=== PATIENT | male | born 1995 | race Caucasian/White ===

== ENCOUNTER → 2020-01-07 12:36 | Outpatient (CLI) | payer MEDICARE, OTHER, MEDICAID, SELFPAY ==
--- NOTE | ~2020-01-07 | CT_ITS ---
EXAMINATION: CT BRAIN W/O DATE: 01/07/2020 13:53 INDICATION: Headache. Papilledema. TECHNIQUE: Computed tomography (CT) of the head was performed without intravenous contrast. The dose- length product was 599.57 mGy-cm. The mA was adjusted according to patient size. Iterative reconstruc tion technique was employed. COMPARISON: No prior studies for comparison. FINDINGS: Normal brain parenchymal volume for age. Normal mejia-white differentiation. No acute intrac ranial hemorrhage, infarction, mass or mass effect. No ventriculomegaly or midline shift. Midline sagittal images demonstrate a normal corpus callosum, c raniovertebral junction and sella turcica. Basilar cisterns are patent. Paranasal sinuses and mastoids are pneumatized. No depressed skull fractures. IMPRESSION: 1. No acute intracranial abnormality. Reviewed, dictated and finalized at location A.
[2020-01-07 13:38] LABS: Estimated Glomerular Filt Rate 34
== END ==
PROVIDERS: PCP Pediatrics; Visit Provider Pediatrics
DX: R51 Headache (principal)
CPT/HCPCS: 36415; 70450

== ENCOUNTER 2021-04-01 11:03 | Outpatient (CLI) | payer MEDICARE, OTHER, MEDICAID, SELFPAY ==
--- NOTE | ~2021-04-01 | XR_ITS ---
EXAMINATION: XR hand RT 2V DATE: 04/01/2021 11:34 INDICATION: Inflammatory arthritis with gout in the second digit. TECHNIQUE: Posteroanterior, oblique and lateral views of the right hand were obtained. COMPARISON: None. FINDINGS: 3 mm ulnar minus variance. Alignment is otherwise normal. No fractures. Joint spaces are normal. No c ortical erosions. Soft tissue swelling at the ulnar side of the second distal interphalangeal joint a nd to a lesser degree about the second and third proximal interphalangeal joints. IMPRESSION: 1. Nonspecific periarticular soft tissue swelling at the ulnar side of the right second distal interp halangeal joint and to lesser degree at the second and third proximal interphalangeal joints. 2. Normal joint spaces and no osseous erosions to more specifically suggest an inflammatory arthritis .. Reviewed, dictated and finalized at location A. IMPRESSION: 1. Nonspecific periarticular soft tissue swelling at the ulnar side of the righ t second distal interphalangeal joint and to lesser degree at the second and th ird proximal interphalangeal joints. 2. Normal joint spaces and no osseous erosions to more specifically suggest an inflammatory arthritis..
== END 2021-04-01 11:04 | disposition home or self-care (01) ==
LOC: ANHIMG 11:15
PROVIDERS: PCP Pediatrics
DX: M19.90 Unspecified osteoarthritis, unspecified site (principal)
CPT/HCPCS: 73120

== ENCOUNTER 2025-07-29 07:00 | Outpatient (CLI) | payer MEDICARE, MEDICAID, SELFPAY ==
--- NOTE | ~2025-07-29 | XR_ITS ---
EXAMINATION: XR knee RT 3V, 07/29/2025 7:30 CDT HISTORY: M25.561 - Pain in right knee COMPARISON: No comparisons available. Findings: No acute fracture or malalignment. No significant degenerative changes. Soft tissues unremarkable. Impression: No acute fracture or malalignment. Reviewed, dictated and finalized at location P. Impression: No acute fracture or malalignment.
--- NOTE | ~2025-07-29 | XR_ITS ---
EXAMINATION: XR hip BI 2V w AP pelvis, 07/29/2025 7:30 CDT HISTORY: M25.551 - Pain in right hip NON INJ COMPARISON: No comparisons available. Findings: No acute fracture or malalignment. 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 Soft tissues unremarkable. Impression: No acute fracture or malalignment. Reviewed, dictated and finalized at location P. Impression: No acute fracture or malalignment.
--- OUTSIDE RECORDS SUMMARY | 2025-07-29 07:05 | XMS_ITS | Clinical Summary ---
Author Organization [facility] Address [address] [place] [address] Care Team Providers Care Produce Runner Name Role Phone Michael Ortez MD Primary Care Provider [phone] Allergies No known active allergies Medications allopurinoL (ZYLOPRIM) 300 mg tablet Take 1 tablet (300 mg total) by mouth daily 90 tablet 1 02/11/20 25 Active levothyroxine (SYNTHROID) 100 mcg tabletIndications: Acquired hypothyroidism TAKE 1 TABLET BY MOUTH EVERY MORNING. 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 Given history of severe reflux and back pain, he likely has pyelonephritis as well as cystis. He is a patient of urology who recommends outpatient treatment with bactrim; however, due to emesis he was admitted for concern for ongoing fluid resuscitation requirements. Empiric treatment would typically be with ciprofloxacin, however given the patient's history of tendonitis after fluoroquinolone treatment, we will await sensitivities to pick a narrow-spectrum agent with decreased risk of side effects. -cefepime 2000 q24h -narrow after sensitivities are available -zofran prn Assessment & Plan (03/23/2019 2:27 AM CDT): Juan is a 23 year old male with trisomy 21, chronic renal insufficiency, reflux nephropathy s/p Mitrofanoff placement, as well as HTN and hypothyroidism, who presents with emesis and dehydration secondary to complicated UTI. Given history of severe reflux and back pain, he likely has pyelonephritis as well as cystis. He is a patient of urology who recommends outpatient treatment with bactrim; however, due to emesis he was admitted for concern for ongoing fluid resuscitation requirements. He currently has a heart rate of 100, decreased from 134, and is currently comfortable without vomiting. We will re-dose his bactrim since he had vomiting soon after administration and continue supportive care overnight with the plan for discharge on oral bactrim tomorrow. -mIVF -bactrim 160 mg trimethoprim x 10 days -zofran prn Screening for diabetes mellitus 12/10/2018 Obesity (BMI 30-39.9) 12/09/2018 Obesity 11/26/2017 Urinary retention 09/26/2016 Hypertension 04/30/2015 Chronic renal insufficiency, stage III (moderate ) 09/12/2011 Reflux nephropathy 03/01/2010 Hypothyroidism 07/06/2009 Assessment & Plan (12/03/2024 2:23 PM MANUFACTURING PRODUCTION TECHNICIAN): 28 y.o. male with hypothyroidism associated with Down syndrome (trisomy 21): Here with his parents as always. He is doing well and feeling good. Family unfortunately suffered Influenza A infection and Juan also had a recent UTI but responded well to antibiotics - follows with Intervention Teacher. Dry, red hands (?dermatitis). Has been using an [employer] Ring for tclue-uzk-dhwoo insights into sleep, fitness, and stress. Clinically euthyroid and stable on current dose of Levothyroxine 100 mcg qAM - adherent with no missed doses Denies active symptoms: no cold intolerance, no fatigue, no constipation, no mood changes, no weight gain No thyroid enlargement, masses, nodules, or tenderness No bradycardia, no non-pitting edema, no delayed relaxation of tendon reflexes No evidence of hyponatremia on recent basic metabolic panel Latest thyroid function testing: Lab Results Component Value Date TSH 3.12 11/29/2024 T3FREE 3.0 11/29/2024 FREET4 1.2 11/29/2024 No results found for: THYROIDAB, THYROGLOBAB, THYPEROXAB, TBII Patient denies taking any high-potency biotin-containing supplements (altered testing) Patient denies taking any calcium or iron supplements (reduced absorption) Will get repeat labs at [facility] - orders sent Plan: 1) Continue Levothyroxine 100 mcg qAM (60 min before first meal); avoid other medications inhibiting absorption 2) Repeat thyroid function studies (TSH and Free T4) in 6-8 weeks if dose adjusted or annually, if stable 3) Check lipid panel (hypothyroidism assoc with hyperlipidemia) Trisomy 21, Down syndrome 07/06/2009 Assessment & Plan (12/26/2023 2:36 PM CDT): 28 y.o. male with hypothyroidism associated with Down syndrome (trisomy 21): Clinically euthyroid and stable on current dose of Levothyroxine 100 mcg qAM - adherent with no missed doses Denies active symptoms: no cold intolerance, no fatigue, no constipation, no mood changes, no weight gain No thyroid enlargement, masses, nodules, or tenderness No bradycardia, no non-pitting edema, no delayed relaxation of tendon reflexes No evidence of hyponatremia on recent basic metabolic panel Thyroid Function Tests (05/15/2023) on LT4 100 mcg daily: TSH = 2.10 Free T4 = 1.2 Free T3 = N/A Antibodies: anti-TPO Abs and TSI = N/A Latest Thyroid US = N/A Patient denies taking any high-potency biotin-containing supplements (altered testing) Patient denies taking any calcium or iron supplements (reduced absorption) Will get repeat labs at [facility] - orders sent Plan: 1) Continue Levothyroxine 100 mcg qAM (60 min before first meal); avoid other medications inhibiting absorption 2) Repeat thyroid function studies (TSH and Free T4) in 6-8 weeks if dose adjusted or annually, if stable 3) Check lipid panel (hypothyroidism assoc with hyperlipidemia) Resolved Problems Problem Noted Date Diagnosed Date Resolved Date Atrial septal defect 03/15/2018 018 Encounters Date Type Department Care Team Description 07/27/2025 Orders Only [facility] 2[address] [place] [address] [place] [id number] Dewayne Collier MD Recurrent UTI (Primary Dx) 07/24/2025 Orders Only [facility] [address] [facility] 5[address] [place] [address] [place] [address] Clay Pearl MD CRD (chronic renal disease), stage IV (HCC) (Primary Dx); 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; Hypertension secondary to other renal disorders; Reflux nephropathy; Malignant hypertension with chronic renal disease stage III (HCC) 05/20/2025 Telephone [facility] [address] [place] [address] [place] [address] Sanam Gonzalez RN Urostomy Samples from Last 3 Months Immunizations Immunization Administration Dates Next Due DTaP 02/04/2002, 9,06/30/1998,05/03/1998 ,02/25/1998 Hep B, Adolescent or Pediatric 09/20/1998,1997,1997 Hib (PRP-OMP) 07/05/1999,06/30/1998,05/03/1998 ,02/25/1998 IPV 02/03/2003,07/05/1999,05/03/1998 ,02/25/1998 MMR 02/03/2003,01/04/1999 MMRV 03/29/2010,04/19/1999 Meningococcal Conjugate (Menveo) 03/30/2016 Tdap 03/29/2010 Varicella 03/29/2010,04/19/1999 Surgical History Surgery Date Site/Laterality Comments URETEROURETEROSTOMY 1997 with takedown on 07/09/98 URETERAL REIMPLANTION 07/16/1998 TONSILLECTOMY AND ADENOIDECTOMY 10/03/2006 Bilateral VESICOSTOMY 03/15/2002 - 04/13/2002 with takedown 03/24/05 CYSTOSCOPY 11/21/2016 LMA 4, easy mask vent, OTHER SURGICAL HISTORY 01/16/2013 N/A VCUG MITROFANOFF PROCEDURE 03/15/2018 - 04/13/2018 APPENDECTOMY 03/15/2018 - 04/13/2018 Medical History Medical History Date Comments Hypertension 04/30/2015 controlled on Li sinopril; checked weekly at home and range is 120-130/70-80 Obesity Chronic renal insufficiency, stage III (moderate) 09/12/2011 Estimated GFR is 32mL/min/1. 73m2, Cre 2.04, BUN 57, elevated urine protein ratio, follows with nephrology every 6 months, should have 2L fluid minimum/day Urinary retention straight caths 6xday using 12-14 andorran Reflux nephropathy Hypothyroidism on Levothyroxine ; followed yearly by endocrinology Last labs 11/07/18 TSH 0.94 NL, FT4 1.3 NL Anomaly of chromosome pair 21 Family History Medical History Relation Name Comments Hip Problems Father Hip problem - ( Added by TW Conv) Cancer Other 1 Cancer - (Added by TW Conv) Diabetes Other 2 Diabetes Mellit - (Added by TW Conv) Hearing loss Other 3 Hearing Loss - (Added by TW Conv) Hypertension Other 4 Family history of hypertension - (Added by TW Conv) Relation Name Status Comments Father Other 1 Other 2 Other 3 Other 4 Social History Tobacco Use Types Packs/Day Years Used Date Smoking Tobacco: Never Smokeless Tobacco: Never Tobacco Cessation:Counseling Given: Not Answered Alcohol Use Standard Drinks/Week Comments No 0 (1 standard drink = 0.6 oz pur e alcohol) Sex and Gender Information Value Date Recorded Sex Assigned at Not on file Legal Sex Male 5:36 AM MANUFACTURING PRODUCTION TECHNICIAN Gender Identity Male 06/01/2021 3:27 PM CDT Sexual Orientation Not on file Obstetrics History Last Filed Vital Signs Vital Sign Reading Time Taken Comments Blood Pressure 126/80 04/08/2025 12:54 PM CDT Pulse 97 04/08/2025 12:54 PM CDT Temperature 36.4 C (97.6 F) 04/08/2025 12:54 PM CDT Respiratory Rate 18 08/07/2024 9:18 AM CDT Oxygen Saturation 99% 08/07/2024 9:18 AM CDT Inhaled Oxygen Concentration - - Weight 73.9 kg (163 lb) 04/08/2025 12:54 PM CDT Height 154.9 cm (5' 1) 04/08/2025 12:54 PM CDT Body Mass Index 30.8 04/08/2025 12:54 PM CDT Plan of Treatment Health Maintenance Due Date Last Done Comments Depression Screening 1997 Hepatitis C Screening 1997 Regular Well Visit/Exam 18-64 12/16/2015 DTaP/Tdap/Td Vaccine (7 - Td or Tdap) 03/29/2020 03/29/2010, 02/04/2002, 07/05/1999, Additional history exists HPV Vaccines (1 - 3-dose SCDM series) 2024 Influenza Vaccine (#1) 2025 Hepatitis B Screening Completed 09/20/1998 , 01/18/1998, 1997 Varicella Vaccines Completed 03/29/2010, 0 03/29/2010, 04/19/1999, Additional history exists Pneumococcal vaccine <65 Aged Out No longer eligible based on patient's age to complete this topic Medical Devices Implanted Type Area Optical Advisor Device Identifier Shelf Expiration Date Model / Serial / Lot Impl Uro 1ml Deflux Gel Inj - [id number] Implanted:Qty: 1 on 04/03/2018 by Rafat Bejarano MD at [facility] N/A: Bladder [employer] 02/12/2020 / / [id number] Impl Uro 1ml Deflux Gel Inj - [id number] Implanted:Qty: 3 on 11/13/2018 by Rafat Bejarano MD at [facility] N/A: Bladder [employer] 07/14/2020 / / [id number] Procedures Procedure Name Priority Date/Time Associated Diagnosis Comments COPY RECEIVED FROM Routine 06/24/2025 9: 08 AM CDT COPY(IES) SENT TO: Routine 06/24/2025 9: 08 AM CDT OSMOLALITY, URINE Routine 06/24/2025 9:0 8 AM CDT CRD (chronic renal disease), stage IV (HCC) from Last 3 Months Results * Copy received from (06/24/2025 9:08 AM CDT) Copy Rec'd from: [facility] Comment: [facility]-RENAL [address] [place] [address] 06/24/2025 9:08 AM CDT 06/24/2025 9:09 AM CDT Clay Pearl MD LAB BLOOD ORDERABLES Zina l Result Performing Organization Address City/[facility] Co de Phone Number [facility] * COPY(IES) SENT TO: (06/24/2025 9:08 AM CDT) COPY(IES) SENT TO: [facility] Comment: [facility]NAL [facility] RENAL [address] [address] 06/24/2025 9:08 AM CDT 06/24/2025 9:09 AM CDT Clay Pearl MD LAB BLOOD ORDERABLES Zina l Result Performing Organization Address City/[facility]/ZIP Co de Phone Number [facility] * Osmolality, urine (06/24/2025 9:08 AM CDT) Osmolality (u) 272 50 - 1,200 mOsm/kg [facility] Urine 06/24/2025 9:08 AM CDT 06/24/2025 9:09 AM CDT Clay Pearl MD LAB URINE ORDERABLES Zina l Result [facility] [address] [place] [address] from Last 3 Months Additional Health Concerns Infection Onset Date Last Indicated MDR gram neg/ESBL Comment:AUTOMATED NOTE (ADD): MDRO (contact), PERRY, [email or web address], Mon February 12 11:26:50 CDT 2016The patient has a urine culture from 02/09/17 that grew MDRO E.coli. 02/12/2017 02/12/2017 Insurance AETNA [facility] HMO [facility] MEDICARE [facility] Address: [address] [address] [place] [address] A[place] PREFERRED IDPA [facility] IDPA [facility] ADVANTRA IDPA [facility] AETNEA [facility] ADVANTRA Advance Directives For more information, please contact: [phone] Documents on File Type Date Recorded Patient Grocery Shopper Expl anation ADVANCE DIRECTIVE 04/03/2018 7:09 AM ADVANCE DIRECTIVE 01/28/2018 Advance Di rective Checklist ADVANCE DIRECTIVE 09/03/2017 Advance Di rective Checklist ADVANCE DIRECTIVE 01/28/2018 3:16 PM * Full Code (Latest Code Status on File) Date Activated Date Inactivated Comments 03/23/2019 1:11 AM 03/25/2019 2:56 PM * Full Code Date Activated Date Inactivated Comments 04/03/2018 8:01 PM 04/08/2018 2:20 PM Care Teams Produce Runner Relationship Specialty Start Date End Date Michael Ortez MD [address] [address] PCP - General Internal Medicine 04/11/22
--- OUTSIDE RECORDS SUMMARY | 2025-07-29 07:05 | XMS_ITS | Encounter Summary ---
Author Organization [facility] Healthcare Address [address] [place] [address] Care Team Providers Care Tobacco Conditioner Name Role Phone Toño Bella MD Primary Care Provider [phone] Michael Ortez MD Primary Care Provider [phone] Encounter Details Date Type Department Care Team (Late st Contact Info) Description 11/23/2021 Telephone [facility] [place] [address] Aggie Carpenter, JEAN-PIERRE Social History Tobacco Use Types Packs/Day Years Used Date Smoking Tobacco: Never Smokeless Tobacco: Never Alcohol Use Standard Drinks/Week Comments No 0 (1 standard drink = 0.6 oz pur e alcohol) Sex and Gender Information Value Date Recorded Sex Assigned at Not on file Legal Sex Male 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 02/12/2017 02/12/2017 documented as of this encounter Care Teams Tobacco Conditioner Relationship Specialty Start Date End Date Toño Bella MD [address] [facility] [address] [place] [address] PCP - General 02/09/17 04/10/22 Michael Ortez MD [address] [facility] [address] [facility] [address] [place] [address] PCP - General Internal Medicine 04/11/22 documented as of this encounter
--- OUTSIDE RECORDS SUMMARY | 2025-07-29 07:05 | XMS_ITS | Clinical Summary ---
Author Organization [facility] [employer] Address [address] [facility] [place] [address] Care Team Providers Care Bilingual Teacher Name Role Phone Unavailable Primary Care Provider Unavailabl e Source Comments [facility] [employer],non-owned Affiliates and Associated Physician Practices is amultiple site organization consisting of ambulatory clinics and hospital sitesin [place], [place], [place] and [place]. This disclosure is being madepursuant to the Care Everywhere program and may not contain all information available regarding this patient. Last updated 18.[facility] [employer] Allergies No known active allergies Medications * Be aware that medications may not be up to date on this document. Alwaysverify current medications with the patient. lisinopril (PRINIVIL; ZESTRIL) 20 MG tablet Take 20 mg by mouth once daily 03/19/2020 Active levothyroxine (SYNTHROID) 100 MCG tablet Take 100 mcg by mouth once daily 03/17/2020 Active oxybutynin CR 24hr (DITROPAN-XL) 10 MG tablet Take 10 mg by mouth every other day 03/07/2020 Active sulfamethoxazole -trimethoprim (BACTRIM; SEPTRA) 400-80 MG tablet Take 1 tablet by mouth once daily 04/03/2020 Active D-MANNOSE PO Take 700 mg by mouth once daily Active predniSONE (DELTASONE) 10 MG tablet Take 3 tabs daily x3 days, then 2 tabs daily x3 days, then 1 tab daily x3 days, then stop. 18 tablet 05/03/2020 Active Family History Medical History Relation Name Comments Cancer Father Arthritis - Rheumatoid Maternal Grandmother Cancer Maternal Grandmother CAD (Coronary Artery Disease) Paternal Grandmother Diabetes; unknown type Paternal Grandmother Relation Name Status Comments Father Maternal Grandmother Paternal Grandmother Social History Tobacco Use Types Packs/Day Years Used Date Smoking Tobacco: Never Smokeless Tobacco: Never Alcohol Use Standard Drinks/Week Comments Never 0 (1 standard drink = 0.6 oz pur e alcohol) AUDIT-C Answer Date Recorded Q1: How often do you have a drink containing alc ohol? Never 05/03/2020 Average Number of Drinks Not on file 020 Frequency of Binge Drinking Not on file 04/15 Sex and Gender Information Value Date Recorded Sex Assigned at Not on file Legal Sex Male 5:39 AM MANAGER LAB Gender Identity Not on file Sexual Orientation Not on file Last Filed Vital Signs Vital Sign Reading Time Taken Comments Blood Pressure 121/73 05/03/2020 8:17 AM CDT Pulse 83 05/03/2020 8:17 AM CDT Temperature - - Respiratory Rate - - Oxygen Saturation 98% 05/03/2020 8:17 AM CDT Inhaled Oxygen Concentration - - Weight 75.8 kg (167 lb) 05/03/2020 8:17 AM CDT Height 157.5 cm (5' 2) 05/03/2020 8:17 AM CDT Body Mass Index 30.54 05/03/2020 8:17 AM CDT Plan of Treatment Health Maintenance Due Date Last Done Comments HIV SCREENING 2012 HEPATITIS C SCREENING 12/11/2015 DTAP/TDAP/TD VACCINES (1 - Tdap) 2016 HEPATITIS B VACCINE (1 of 3 - 19+ 3-dose series) 2016 DEPRESSION SCREENING 10/15/2024 HPV VACCINE (1 - 3-dose SCDM series) 2024 COVID-19 VACCINE (1 - 2023-2 5 season) 2025 INFLUENZA VACCINE (#1) 2025 ZOSTER VACCINE (1 of 2) 12/16/2047 HIB VACCINE Aged Out No longer eligi ble based on patient's age to complete this topic MENINGOCOCCAL (Group B) VACC INE SHARED DECISION-MAKING Aged Out No longer eligibl e based on patient's age to complete this topic MENINGOCOCCAL GROUPS A/C/Y/W VACCINE Aged Out No longer eligible b ased on patient's age to complete this topic PNEUMOCOCCAL VACCINE Aged Out No long er eligible based on patient's age to complete this topic Insurance AETNA MEDICARE MEDICAID - [place]
--- OUTSIDE RECORDS SUMMARY | 2025-07-29 07:05 | XMS_ITS | Encounter Summary ---
Author Organization [facility] Address [address] [place] [address] Phone Care Team Providers Care Coordinate Measuring Machine Technician Name Role Phone Toño Bella MD Primary Care Provider [phone] Michael Ortez MD Primary Care Provider [phone] Encounter Details Date Type Department Care Team (Late st Contact Info) Description 07/14/2021 Telephone [facility] [place] [address] Elizabeth Burt, A Social History Tobacco Use Types Packs/Day Years Used Date Smoking Tobacco: Never Smokeless Tobacco: Never Alcohol Use Standard Drinks/Week Comments No 0 (1 standard drink = 0.6 oz pur e alcohol) Sex and Gender Information Value Date Recorded Sex Assigned at Not on file Legal Sex Male 5:36 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 02/12/2017 02/12/2017 documented as of this encounter Care Teams Coordinate Measuring Machine Technician Relationship Specialty Start Date End Date Toño Bella MD [address] [facility] [address] [place] [address] PCP - General 02/09/17 04/10/22 Michael Ortez MD [address] [facility] [address] [place] [address] PCP - General Internal Medicine 04/11/22 documented as of this encounter
== END 2025-07-29 07:01 | disposition home or self-care (01) ==
PROVIDERS: PCP Nurse Practitioner; Visit Provider Nurse Practitioner
DX: M25.561 Pain in right knee (principal); M25.551 Pain in right hip; M25.552 Pain in left hip
CPT/HCPCS: 73521; 73562